=== PATIENT | male | born 1960 | race Caucasian/White ===

== ENCOUNTER 2017-10-09 06:58 | Day surgery (SDC) | payer BC ==
[2017-10-09] VITALS (7 sets, daily range): BP systolic 123–139; BP diastolic 57–71; PULSE 61–83; TEMP 98–99
[~2017-10-09] VITALS: Ht 175.3 cm; Wt 110.3 kg
[2017-10-09] MEDS ORDERED: ASPIRIN 32325 MG/TA1 PO (07:44)
[2017-10-09] MEDS ORDERED: CRESTOR 10MG10 MG PO (07:45)
[2017-10-09] MEDS ORDERED: SINGULAIR 110 MG/TAB PO (07:45)
[2017-10-09] MEDS ORDERED: CARTIA XT240 MG PO (07:46)
[2017-10-09] MEDS ORDERED: MULTI VITAMINS1 TAB PO (07:46)
[2017-10-09] MEDS ORDERED: ROXICODONE 55 MG/TAB PO (12:41)
[2017-10-09] MEDS ORDERED: TYLENOL 500MG500 MG PO (12:42)
== END 2017-10-09 13:45 | disposition home or self-care (01) ==
LOC: SDCO 06:58
DX: K40.90 Unilateral inguinal hernia, without obstruction or gangrene, not specified as recurrent (principal); Z79.82 Long term (current) use of aspirin; G47.30 Sleep apnea, unspecified; G47.10 Hypersomnia, unspecified; Z80.52 Family history of malignant neoplasm of bladder; Z80.51 Family history of malignant neoplasm of kidney; F32.9 Major depressive disorder, single episode, unspecified; Z85.828 Personal history of other malignant neoplasm of skin; I48.91 Unspecified atrial fibrillation; J45.909 Unspecified asthma, uncomplicated; E11.9 Type 2 diabetes mellitus without complications; M19.90 Unspecified osteoarthritis, unspecified site
CPT/HCPCS: A4314; C1781; J0690; J2270; J2704; J2765; J3010; J7120

== ENCOUNTER → 2018-07-02 | Outpatient (CLI) | payer BC ==
[~2018-07-02] MED LIST: ASPIRIN 32325 MG/TA1 PO; CARTIA XT240 MG PO; CRESTOR 10MG10 MG PO; MULTI VITAMINS1 TAB PO; ROXICODONE 55 MG/TAB PO; SINGULAIR 110 MG/TAB PO; TYLENOL 500MG500 MG PO
== END ==
LOC: COL.RAD 07:26
DX: N43.3 Hydrocele, unspecified (principal); N45.1 Epididymitis

== ENCOUNTER 2018-08-13 19:34 | Emergency (ER) | payer BC ==
[~2018-08-13] VITALS: Ht 175.3 cm; Wt 99.1 kg
[2018-08-13 19:37] VITALS: TEMP 98.4
[2018-08-13 19:59] LABS: BASO % 0.2 % (0.0-2.0); GRAN # 10.2 (1.4-6.5); GRAN % 89.3 % (42.2-75.2); HEMOGLOBIN 16.8 g/dl (13.5-18.0); LYMPH # 0.9 (1.2-3.4); MEAN CELL VOLUME 86 fl (80.0-100.0); MEAN CORPUSCULAR HEMOGLOBIN 30 pg (27.0-31.0); MEAN CORPUSCULAR HGB CONC 35 g/dl (33.0-37.0); MEAN PLATELET VOLUME 9.7 fl (7.4-10.4); MONO # 0.2 (0.1-0.6); MONO % 1.8 % (1.7-9.3); PLATELET COUNT 236 K/mm3 (130-400); RED BLOOD COUNT 5.58 M/mm3 (4.20-5.60); REDCELL DISTRIBUTION WIDTH-CV 11.9 % (11.5-14.5)
[2018-08-13 20:12] LABS: ALANINE AMINOTRANSFERASE 34 U/L (21-72); ALBUMIN 4.4 gm/dL (3.5-5.0); ALKALINE PHOSPHATASE 80 U/L (50-136); ANION GAP 10 mmol/L (7-16); AST,SGOT 23 U/L (15-37); BILIRUBIN,TOTAL 0.4 mg/dL (0.0-1.0); BLOOD UREA NITROGEN 22 mg/dL (9-20); CALCIUM 9.7 mg/dL (8.4-10.2); CARBON DIOXIDE 24 mmol/L (22-30); CHLORIDE 104 mmol/L (98-107); CREATININE, serum 0.77 mg/dL (0.66-1.25); GLUCOSE 168 mg/dL (74-106); POTASSIUM 4.3 mmol/L (3.4-5.0); SODIUM 139 mmol/L (137-145); TOTAL PROTEIN 7.4 gm/dL (6.4-8.2)
[2018-08-13 20:13] LABS: C-REACTIVE PROTEIN < 0.5 mg/dL (0.0-0.9)
[2018-08-13 20:22] LABS: TROPONIN-I < 0.012 ng/mL (0.000-0.035)
[2018-08-13 21:24] VITALS: BP 124/72; PULSE 71
== END 2018-08-13 21:30 | disposition home or self-care (01) ==
LOC: COL.ER 19:34
PROVIDERS: Emergency Medicine
DX: I49.1 Atrial premature depolarization (principal); I48.91 Unspecified atrial fibrillation; E78.5 Hyperlipidemia, unspecified; I10 Essential (primary) hypertension; Z79.82 Long term (current) use of aspirin
CPT/HCPCS: J7030

== ENCOUNTER 2018-09-24 07:32 | Outpatient (CLI) | payer BC ==
[~2018-09-24] VITALS: Ht 175.3 cm; Wt 104.2 kg
[~2018-09-24 07:32] MED LIST changes: +PERCOCET 325 MG1 TA2 PO; -ROXICODONE 55 MG/TAB PO
[2018-09-24 08:37] VITALS: BP 133/67; PULSE 62; TEMP 97.8
[2018-09-24] MEDS ORDERED: ZESTRIL 20MG TA20 MG PO (08:40)
[2018-09-24] MEDS ORDERED: EPA FISH OIL1 SGL PO (08:49)
[2018-09-24] MEDS ORDERED: SENOKOT S 50 MG1 TAB PO (08:52)
[2018-09-24] MEDS ORDERED: CEPHALEXIN500 M1 PO (09:09)
[2018-09-24 10:00] VITALS: BP 114/59; PULSE 59; TEMP 97.9
--- NOTE | 2018-09-24 10:07 | NUR ---
Discharge instructions given to pt.pt verbalizes understanding.
--- NOTE | 2018-09-24 10:08 | NUR ---
Pt escorted out via ambulatory by student nurse.
== END 2018-09-24 10:09 | disposition home or self-care (01) ==
LOC: COL.CAR 07:32
DX: I48.0 Paroxysmal atrial fibrillation (principal); I25.10 Atherosclerotic heart disease of native coronary artery without angina pectoris; G47.33 Obstructive sleep apnea (adult) (pediatric); I10 Essential (primary) hypertension; E78.5 Hyperlipidemia, unspecified

== ENCOUNTER → 2019-03-09 | Outpatient (CLI) | payer BC ==
[~2019-03-09] MED LIST changes: +CEPHALEXIN500 M1 PO; +EPA FISH OIL1 SGL PO; +SENOKOT S 50 MG1 TAB PO; +ZESTRIL 20MG TA20 MG PO
== END ==
LOC: MHCPAIN 08:03
DX: G89.29 Other chronic pain (principal); M79.2 Neuralgia and neuritis, unspecified
CPT/HCPCS: G0463

== ENCOUNTER → 2019-03-29 | Outpatient (CLI) | payer BC | LOC: MHCPAIN 08:10 | DX: G57.81 Other specified mononeuropathies of right lower limb (principal); G57.82 Other specified mononeuropathies of left lower limb | CPT/HCPCS: J1040 ==

== ENCOUNTER → 2019-06-22 | Outpatient (CLI) | payer BC | LOC: MHCPAIN 15:42 | DX: M79.2 Neuralgia and neuritis, unspecified (principal); R10.31 Right lower quadrant pain | CPT/HCPCS: G0463 ==

== ENCOUNTER 2020-02-28 18:50 | Emergency (ER) | payer BC ==
[~2020-02-28] VITALS: Ht 175.3 cm; Wt 108.6 kg
[2020-02-28 19:00] VITALS: TEMP 97.1
[2020-02-28 19:30] LABS: BASO % 0.5 % (0.0-2.0); EOS # 0.3 (0.0-0.7); EOS % 3.9 % (0-4.0); GRAN # 4.1 (1.4-6.5); GRAN % 53.7 % (42.2-75.2); HEMATOCRIT 45.8 % (42.0-52.0); HEMOGLOBIN 15.9 g/dl (13.5-18.0); LYMPH # 2.3 (1.2-3.4); LYMPH % 29.8 % (20.0-51.0); MEAN CELL VOLUME 85 fl (80.0-100.0); MEAN CORPUSCULAR HEMOGLOBIN 30 pg (27.0-31.0); MEAN CORPUSCULAR HGB CONC 35 g/dl (33.0-37.0); MEAN PLATELET VOLUME 9.5 fl (7.4-10.4); MONO # 0.9 (0.1-0.6); MONO % 11.7 % (1.7-9.3); PLATELET COUNT 221 K/mm3 (130-400); RED BLOOD COUNT 5.36 M/mm3 (4.20-5.60); REDCELL DISTRIBUTION WIDTH-CV 11.7 % (11.5-14.5)
[2020-02-28 19:31] LABS: PROTHROMBIN TIME 11.6 SECONDS (9.7-12.8)
[2020-02-28 19:33] LABS: PARTIAL THROMBOPLASTIN TIME 28.4 SECONDS (26.0-37.0)
[2020-02-28 19:42] LABS: ALANINE AMINOTRANSFERASE 34 U/L (4-49); ALBUMIN 3.9 gm/dL (3.5-5.0); ALKALINE PHOSPHATASE 73 U/L (50-136); ANION GAP 8 mmol/L (7-16); AST,SGOT 27 U/L (15-37); BILIRUBIN,TOTAL 0.3 mg/dL (0.0-1.0); BLOOD UREA NITROGEN 18 mg/dL (9-20); CALCIUM 9.3 mg/dL (8.4-10.2); CARBON DIOXIDE 27 mmol/L (22-30); CHLORIDE 105 mmol/L (98-107); CREATININE, serum 0.88 (0.66-1.25); GLUCOSE 84 mg/dL (74-106); SODIUM 140 mmol/L (137-145); TOTAL PROTEIN 6.7 gm/dL (6.4-8.2)
[2020-02-28 19:51] LABS: TROPONIN-I < 0.012 ng/mL (0.000-0.035)
[2020-02-28 21:58] VITALS: BP 129/74; PULSE 56
[2020-02-28] MEDS ORDERED: IMDUR 30MG30 MG/TAB PO (22:18)
== END 2020-02-28 22:25 | disposition home or self-care (01) ==
LOC: COL.ER 18:50
PROVIDERS: Family Medicine
DX: R07.9 Chest pain, unspecified (principal); I10 Essential (primary) hypertension

== ENCOUNTER → 2022-04-30 | Outpatient (CLI) | payer BC ==
[~2022-04-30] MED LIST changes: +ASPIRIN 81M81 MG/TA2 PO; +CLARITIN 1010 MG/TAB PO; +IMDUR 30MG30 MG/TAB PO; +WELLBUTRIN XL150 MG PO
== END ==
LOC: MHCPAIN 15:15
DX: M47.812 Spondylosis without myelopathy or radiculopathy, cervical region (principal); M54.12 Radiculopathy, cervical region; G44.86 Cervicogenic headache
CPT/HCPCS: G0463

== ENCOUNTER → 2023-07-07 | Outpatient (CLI) | payer BC | LOC: MC.RAD 07:27 → COL.RAD 08:00 → MC.RAD 08:00 | DX: M54.12 Radiculopathy, cervical region (principal) ==

== ENCOUNTER → 2023-07-30 | Outpatient (CLI) | payer BC | LOC: COL.RAD 09:55 | DX: M51.36 Other intervertebral disc degeneration, lumbar region (principal); M48.061 Spinal stenosis, lumbar region without neurogenic claudication; M47.816 Spondylosis without myelopathy or radiculopathy, lumbar region; M47.817 Spondylosis without myelopathy or radiculopathy, lumbosacral region ==

== ENCOUNTER → 2024-05-25 | Outpatient (CLI) | payer BC | LOC: COL.RAD 14:31 | DX: M47.24 Other spondylosis with radiculopathy, thoracic region (principal); M47.812 Spondylosis without myelopathy or radiculopathy, cervical region ==